=== PATIENT | female | born 1965 | race Caucasian/White ===

== ENCOUNTER 2022-04-25 15:28 | Inpatient (IN) | payer MEDICARE, OTHER ==
[~2022-04-25] VITALS: Ht 172.7 cm; Wt 92.8 kg
[~2022-04-25 15:28] MED LIST: ASPIRIN CHEWABL81 MG PO; BENAZEPRIL HCL20 MG PO; BUSPIRONE HCL15 MG PO; IBUPROFEN800 MG PO; LIPITOR40 MG PO; MACROBID100 MG PO; MIRTAZAPINE15 M1 PO; PYRIDIUM200 MG PO; TIZANIDINE HCL4 M1 PO; TRANDATE100 MG PO
[2022-04-25 17:51] LABS: BASOPHIL 0.6 % (0-2); EOSINOPHIL 0.5 % (0-5); HCT 36.8 % (37.0-47.0); HGB 13.2 g/dl (12.5-16.0); LYMPHOCYTE 27.7 % (15-48); MCH 30.8 pg (25.0-31.0); MCHC 35.9 g/dL (32.0-36.0); MCV 85.8 fL (78.0-100.0); MONOCYTE 5.2 % (0-12); MPV 9.6 fL (6.0-9.5); NEUTROPHIL 65.6 % (41-80); NRBC 0; PLT 249 K/uL (150-400); RBC 4.29 M/uL (4.20-5.40); WBC 11.1 K/uL (4.0-10.5)
[2022-04-25 18:15] LABS: LACTIC ACID 2.4 mmol/L (0.4-1.9)
[2022-04-25 18:20] LABS: ALBUMIN 3.8 g/dL (3.4-5.0); BILIRUBIN - TOTAL 0.4 mg/dL (0.2-1.0); BUN/CREAT RATIO (CALC) 8.6 RATIO; CREATININE 0.81 mg/dL (0.51-0.95); GLOBULIN (CALCULATION) 3.8 g/dL; POTASSIUM 2.8 mmol/L (3.5-5.1); TOTAL PROTEIN 7.6 g/dL (6.4-8.2)
[2022-04-25] MEDS ORDERED: ALLERGY RELIEF25 MG PO (23:19)
[2022-04-25] MEDS ORDERED: ADVIL200 M1 PO (23:19)
[2022-04-25 23:29] LABS: BUN/CREAT RATIO (CALC) 7.1 RATIO; CREATININE 0.85 mg/dL (0.51-0.95); POTASSIUM 3.1 mmol/L (3.5-5.1)
[2022-04-25] MEDS ORDERED: ALL DAY ALLERGY10 M2 PO (23:36)
[2022-04-25] MEDS ORDERED: NEURONTIN300 MG PO (23:37)
[2022-04-25] MEDS ORDERED: 8HR ARTHRITIS650 M1 PO (23:37)
[2022-04-25] MEDS ORDERED: CYCLOBENZAPRINE5 MG PO (23:38)
[2022-04-25] MEDS ORDERED: UROCIT-K10 MEQ PO (23:40)
[2022-04-25] MEDS ORDERED: NORVASC2.5 MG PO (23:42)
[2022-04-25] MEDS ORDERED: HCTZ25 MG PO (23:42)
[2022-04-26 07:06] LABS: BASOPHIL 0.8 % (0-2); EOSINOPHIL 1.3 % (0-5); HCT 33.4 % (37.0-47.0); HGB 11.6 g/dl (12.5-16.0); LYMPHOCYTE 23.8 % (15-48); MCH 30.2 pg (25.0-31.0); MCHC 34.7 g/dL (32.0-36.0); MONOCYTE 8.9 % (0-12); MPV 9.5 fL (6.0-9.5); NEUTROPHIL 64.8 % (41-80); NRBC 0; PLT 235 K/uL (150-400); RBC 3.84 M/uL (4.20-5.40); RDW 13.2 % (11.5-14.0); WBC 7.7 K/uL (4.0-10.5)
[2022-04-26 07:24] LABS: BUN/CREAT RATIO (CALC) 9.9 RATIO; CREATININE 0.81 mg/dL (0.51-0.95); MAGNESIUM 2.1 mg/dL (1.8-2.4); PHOSPHORUS 3.2 mg/dL (2.6-4.7); POTASSIUM 3.6 mmol/L (3.5-5.1)
--- NOTE | 2022-04-26 08:20 | NUR ---
0820 MET IN THE HALLWAY BY THIS PATIENT TALKING VERY LOUD "REMOVED THIS IV I AM GOING HOME OR I WILL REMOVED IT MY SELF" "I CAN'T STAY HERE". THIS NURSE REMOVED IV SITE AND ASKED PATIENT TO RETURN TO HER ROOM. NOTIFED GEOFF CAMACHO THAT THE IV SITE HAS BEEN REMOVED AND PATIENT REQUEST THE AMA PAPER. 0833 SIGNED AMA PAPER. 0833 LEFT THE FACILTIY. CONDITION WAS STABLE AT THAT TIME.
--- NOTE | 2022-04-26 09:19 | NUR ---
0820: THIS NURSE WAS AT ANOTHER PATIENT'S BEDSIDE WHEN GEOFF SEN CAME IN ROOM AND STATED THE PATIENT WANTS HER TO REMOVE IV AND PATIENT IS LEAVING. I TOLD HER THAT I WAS INFORMED BY MECHANIC/WELDER THAT PATIENT HAD BEEN THRETING TO LEAVE AMA ALL NIGHT, AND TO HAVE HER SIGN PAPER. PATIENT LEFT FLOOR AT 0833.
== END 2022-04-26 08:33 | disposition left against medical advice (07) | DRG 394 ==
LOC: FER 15:28 → FMS 20:49
PROVIDERS: Emergency Medicine; Nurse Practitioner Acute Care; ADMIT Internal Medicine
DX: K43.0 Incisional hernia with obstruction, without gangrene (principal); E87.1 Hypo-osmolality and hyponatremia; E87.2 Acidosis; K59.00 Constipation, unspecified; I25.10 Atherosclerotic heart disease of native coronary artery without angina pectoris; F32.A Depression, unspecified; F41.9 Anxiety disorder, unspecified; F17.210 Nicotine dependence, cigarettes, uncomplicated; R59.1 Generalized enlarged lymph nodes; E66.3 Overweight; E87.6 Hypokalemia; E83.42 Hypomagnesemia; R94.31 Abnormal electrocardiogram [ECG] [EKG]; R73.9 Hyperglycemia, unspecified; I12.9 Hypertensive chronic kidney disease with stage 1 through stage 4 chronic kidney disease, or unspecified chronic kidney disease; N18.2 Chronic kidney disease, stage 2 (mild); Z98.890 Other specified postprocedural states; Z68.31 Body mass index [BMI] 31.0-31.9, adult; Z90.49 Acquired absence of other specified parts of digestive tract; I25.2 Old myocardial infarction; Z79.899 Other long term (current) drug therapy
CPT/HCPCS: 36415; 80048; 80053; 83036; 83605; 83735; 84100; 84145; 85025; 93005; 94010; G0480; J1170; J2543; J3475; J3480; J7030; J7050; Q9967